=== PATIENT | female | born 1975 | race Two or more races ===

== ENCOUNTER 2021-03-25 22:52 | Emergency (ER) | payer SELFPAY ==
[~2021-03-25] VITALS: Ht 157.5 cm; Wt 59.9 kg
[2021-03-25 22:57] VITALS: BP 131/100
== END 2021-03-26 03:53 | disposition left against medical advice (07) ==
LOC: ER 22:52
DX: M25.532 Pain in left wrist (principal); M25.511 Pain in right shoulder; M79.632 Pain in left forearm; X50.0XXA Overexertion from strenuous movement or load, initial encounter; Y93.89 Activity, other specified; Y92.89 Other specified places as the place of occurrence of the external cause; Y99.8 Other external cause status
CPT/HCPCS: 73030; 73090

== ENCOUNTER 2021-03-26 10:35 | Emergency (ER) | payer SELFPAY ==
[~2021-03-26] VITALS: Ht 157.5 cm; Wt 59.9 kg
[2021-03-26 10:54] VITALS: BP 112/75
== END 2021-03-26 11:58 | disposition home or self-care (01) ==
LOC: ER 10:35
DX: S60.212A Contusion of left wrist, initial encounter (principal); S40.011A Contusion of right shoulder, initial encounter; Z88.0 Allergy status to penicillin; Y04.8XXA Assault by other bodily force, initial encounter; Y93.89 Activity, other specified; Y92.89 Other specified places as the place of occurrence of the external cause; Y99.8 Other external cause status